=== PATIENT | male | born 1965 | race Caucasian/White ===

== ENCOUNTER 2021-03-10 07:10 | Day surgery (SDC) | payer OTHER ==
[2021-03-02 09:18] VITALS: BMI 38.7
[2021-03-10] MEDS ORDERED: CEFAZOLIN 2 GM/D5W 2 GM/50 ML ML IVPB ONE (07:13)
[2021-03-10] MEDS ORDERED: BUPIVACAINE HCL/EPINEPHRINE/PF 30 ML VIAL IJ ONE (07:18)
[2021-03-10] MEDS ORDERED: VANCOMYCIN 1,000 MG VIAL (RESTRICTED TO ID ONLY) ONE ×2 (07:18→09:11)
[2021-03-10] MEDS ORDERED: BUPIVACAINE LIPOSOME/PF (EXPAREL) 266 MG/20 ML VIAL ONE (08:11)
[2021-03-10] MEDS ORDERED: MIDAZOLAM HCL 2 MG/2 ML SINGLE DOSE VIAL ONE ×4 (08:11→10:56)
[2021-03-10] MEDS ORDERED: BUPIVACAINE HCL/PF 0.5% (5MG/ML) 10 ML VIAL ONE (08:11)
[2021-03-10] MEDS ORDERED: SODIUM CHLORIDE 0.9% P/F 10 ML VIAL IJ ONE (08:11)
[2021-03-10] MEDS ORDERED: PROPOFOL 20 ML ONE (08:12)
[2021-03-10] MEDS ORDERED: SUCCINYLCHOLINE CHLORIDE 200 MG/10 ML SYRINGE ONE (08:12)
[2021-03-10] MEDS ORDERED: BUPIVACAINE HCL 50 ML ONE (08:13)
[2021-03-10] MEDS ORDERED: TRANEXAMIC ACID 1000 MG/10 ML VIAL ONE (08:56)
[2021-03-10] MEDS ORDERED: ONDANSETRON 4 MG/2 ML VIAL ONE (08:56)
[2021-03-10] MEDS ORDERED: ceFAZolin SODIUM 1 GM VIAL ONE (08:56)
[2021-03-10] MEDS ORDERED: ONDANSETRON 4 MG/2 ML VIAL IVPUSH PRN (12:55)
[2021-03-10] MEDS ORDERED: oxyCODONE HCL 5 MG TABLET PO PRN ×2 (12:55)
[2021-03-10] MEDS ORDERED: PROMETHAZINE HCL 25 MG/1 ML VIAL IVPB PRN (12:55)
[2021-03-10] MEDS ORDERED: ACETAMINOPHEN 325 MG TABLET (FP) PO SCH (13:00)
[2021-03-10] MEDS ORDERED: ACETAMINOPHEN 325 MG TABLET (FP) ONE (13:03)
[2021-03-10 15:05] VITALS: BP 133/78; PULSE 92; TEMP 97.8
== END 2021-03-10 15:05 | disposition home or self-care (01) ==
LOC: FASU 07:10
PROVIDERS: ATTEND Orthopaedic Surgery
PROC: 0SUD0KZ Supplement Left Knee Joint with Nonautologous Tissue Substitute, Open Approach (ICD-10-PCS; principal; 2021-03-10 09:19)
PROC: 0QSH0ZZ Reposition Left Tibia, Open Approach (ICD-10-PCS; 2021-03-10 09:19)
DX: M93.262 Osteochondritis dissecans, left knee (principal); M21.162 Varus deformity, not elsewhere classified, left knee
CPT/HCPCS: 27415; 27455; C1713; 73560-TC-LT-FY; 82962; 94760